=== PATIENT | female | born 1945 | race Caucasian/White ===

== ENCOUNTER 2017-02-23 09:48 | Emergency (ER) | payer OTHER ==
[2017-02-23 09:58] VITALS: BMI 18.3
--- NOTE | 2017-02-23 10:12 | PDOC ---
History of Present Illness - General Chief Complaint: Pain, Acute Stated Complaint: BACK PAIN (KIDNEY) Time Seen by Provider: 02/23/17 10:12 - History of Present Illness Initial Comments: 02/23/17 11:10 72 year old female with PMH of dementia, HTN, HLD, and Diabetes presenting with right mid back pain since 3 PM on the day before presentation. Denies any trauma to the area. The pain is described as a sharp pain that is minimal at baseline but can suddenly shoot to severe pain. No clear exacerbating or relieving factors but potentially worse with certain movements. SHe also admits to some mild nausea but no vomiting, diarrhea, or loss of appetite. Denies chest pain, fevers, chills, lightheadedness, palpitations, or other sick symptoms. Has no history of previous abdominal surgeries or kidney stones. Her PCP is Dr. Weiss. Past History - Past Medical History Allergies/Adverse Reactions: Allergies Allergy/AdvReac Type Severity Reaction Status Date / Time No Known Allergies Allergy Verified 02/23/17 09:57 Home Medications: Ambulatory Orders Unobtainable [Unobtainable] 02/23/17 Cardiac Disorders: Yes Dementia: Yes Diabetes: Yes - Psycho/Social/Smoking Cessation Hx Anxiety: No Suicidal Ideation: No Smoking History: Never smoked Substance Use Type: None Review of Systems - Review of Systems Constitutional: No: Chills, Diaphoresis, Fever HEENTM: No: Blurred Vision, Tearing Respiratory: No: Cough, Orthopnea, Shortness of Breath, SOB with Exertion Cardiac (ROS): No: Chest Pain, Irregular Heart Rate, Lightheadedness, Palpitations, Syncope ABD/GI: Yes: Nausea. No: Constipated, Diarrhea, Poor Appetite, Poor Fluid Intake, Vomiting : Yes: Flank Pain. No: Dysuria, Hematuria Musculoskeletal: Yes: Back Pain. No: Joint Pain, Muscle Weakness Integumentary: No: Erythema, Lesions Neurological: No: Headache, Dizziness Psychiatric: Yes: Anxiety. No: Change in Appetite *Physical Exam - Vital Signs Last Vital Signs Temp Pulse Resp BP Pulse Ox 72 20 140/56 98 02/23/17 09:54 02/23/17 09:54 02/23/17 09:54 02/23/17 09:54 - Physical Exam General Appearance: Yes: Nourished, Apparent Distress, Moderate Distress HEENT: positive: EOMI, NIC, Normal Voice Respiratory/Chest: positive: Lungs Clear, Normal Breath Sounds. negative: Chest Tender, Respiratory Distress, Accessory Muscle Use Cardiovascular: positive: Regular Rhythm, Regular Rate, S1, S2, JVD, Murmur, Systolic Murmur. negative: Edema Gastrointestinal/Abdominal: positive: Normal Bowel Sounds, Flat, Soft. negative : Tender, Organomegaly, Pulsatile Mass Musculoskeletal: positive: Other (No clear CVA tenderness but pain in the right mid back with movement at the area of the right kidney.). negative: CVA Tenderness (R), CVA Tenderness (L) Integumentary: positive: Dry, Warm Neurologic: positive: Alert, Normal Mood/Affect ED Treatment Course - LABORATORY CBC & Chemistry Diagram: 02/23/17 10:53 02/23/17 10:53 Medical Decision Making - Medical Decision Making 72 year old female with PMH of Insulin dependent diabetes, HLD, HTN, and dementia presenting with mid right back pain for the past day that started suddenly. Important etiologies to rule out include AAA, or infected intra abdominal infection. However, this colicky pain is most likely associated with either renal stone or gallstone. 02/23/17 14:08 CT returned with non obstructive gallstones and 1 cm renal cyst. No vascular pathology or acute infection. UA returned positive for infection so will treat her with 1gm ceftriaxone for presummed pyelonephritis and send her home with PCP (Dr. Panchal/ Dr. Weiss) follow up on Saturday. 02/23/17 14:10 *DC/Admit/Observation/Transfer Diagnosis at time of Disposition: Pyelonephritis, acute - Discharge Dispostion Disposition: HOME Admit: No - Referrals Referrals: Milan Panchal MD [Primary Care Provider] - - Patient Instructions Additional Instructions: You were seen for an infection in your kidneys. We gave you antibiotics. You should get better in a few days to week. You can take Tylenol and low dose of Motrin for your pain. Please return to the ED if you do not get better within a week or if the pain gets worse. Please see your primary care physician on Saturday. - Attestations Physician Attestion: I, Dr. Josie De La Torre, attest that this document has been prepared under my direction and personally reviewed by me in its entirety. I further attest, that it accurately reflects all work, treatment, procedures and medical decision -making performed by me. 02/23/17 14:24 02/23/17 14:25 02/23/17 14:27
[2017-02-23 11:05] LABS: BASOPHIL 0.7 % (0-2.0); EOSINOPHIL 0.6 % (0-4.5); MCHC 32.6 g/dl (32.0-36.0); MEAN CELL VOLUME 88.8 fl (80-96); MEAN PLT VOLUME 9.5 fl (7.5-11.1); NEUTROPHILS 76.3 % (42.8-82.8); PLATELET COUNT 166 K/MM3 (134-434); RDW 15.1 % (11.6-15.6); WHITE BLOOD COUNT 8.1 K/mm3 (4.0-10.0)
[2017-02-23] MEDS ORDERED: morphine CARPU-JECT 2 MG/1 ML DISP.SYRIN IVPUSH ONE (11:05)
[2017-02-23 11:09] LABS: URINE APPEARANCE CLOUDY; URINE BILIRUBIN NEGATIVE (NEGATIVE); URINE COLOR YELLOW; URINE GLUCOSE (UA) 3+ (NEGATIVE); URINE KETONE TRACE (NEGATIVE); URINE NITRITE POSITIVE (NEGATIVE); URINE UROBILINOGEN NEGATIVE mg/dL (0.2-1.0)
[2017-02-23] MEDS ORDERED: morphine CARPU-JECT 2 MG/1 ML DISP.SYRIN ONE (11:12)
[2017-02-23 11:15] LABS: URINE BLOOD 1+ (NEGATIVE); URINE LEUK ESTERASE 2+ (NEGATIVE); URINE PROTEIN 2+ (NEGATIVE)
[2017-02-23 11:16] LABS: URINE BACTERIA MANY /hpf (NONE SEEN); URINE MUCUS RARE; URINE RBC 5 /hpf (0-3); URINE WBC 122 /hpf (3-5)
[2017-02-23 11:27] LABS: ALBUMIN 3.4 g/dl (3.4-5.0); ANION GAP 10 (8-16); BILIRUBIN,TOTAL 0.3 mg/dL (0.2-1.0); CALCIUM 9.2 mg/dL (8.5-10.1); CO2 31 mmol/L (21-32); CREATININE 1.1 mg/dL (0.55-1.02); SGOT/AST 13 U/L (15-37); SGPT/ALT 14 U/L (12-78); TOT PROT 8.2 g/dl (6.4-8.2)
[2017-02-23 11:28] LABS: ALK PHOS 114 U/L (45-117)
[2017-02-23 11:29] LABS: GLUCOSE,RANDOM 433 mg/dL (74-106)
--- NOTE | 2017-02-23 11:33 | PDOC ---
Attending Attestation - Resident Resident Name: Josie De La Torre - HPI HPI: 02/23/17 11:24 Pt presents to the ED complaining of a two day history of atraumatic back R mid back pain that is worse with walking and twisting movements of the torso. Denies trauma, fever, nausea, vomiting or abdominal pain. - Physicial Exam PE: 02/23/17 11:33 + paraspinal mid back tenderness. - Medical Decision Making 02/23/17 11:34 Pt presents to the ED complaining of atraumatic R mid back pain. Able to ambulate. No neurologic complaints. Differential includes nephrolithiasis, AAA , pyelonephritis, biliary disease, less likely pancreatitis. Will check labs and non contrast CT, will give pain control and reassess.
[2017-02-23] MEDS ORDERED: SODIUM CHLORIDE 0.9% 1000 ML INFUS.BAG IV ONE (13:22)
[2017-02-23 13:23] VITALS: BP 122/60; PULSE 62; TEMP 97.8
[2017-02-23] MEDS ORDERED: CEFTRIAXONE 50 ML ONE (13:58)
--- NOTE | 2017-02-24 13:37 | EKG ---
Test Reason : Blood Pressure : / mmHG Vent. Rate : 064 BPM Atrial Rate : 064 BPM P-R Int : 172 ms QRS Dur : 102 ms QT Int : 474 ms P-R-T Axes : 080 -52 090 degrees QTc Int : 489 ms NORMAL SINUS RHYTHM LEFT ANTERIOR FASCICULAR BLOCK MINIMAL VOLTAGE CRITERIA FOR LVH, MAY BE NORMAL VARIANT NONSPECIFIC ST AND T WAVE ABNORMALITY ABNORMAL ECG NO PREVIOUS ECGS AVAILABLE Confirmed by NAHOMI KING, DIONI ([id number]) on 02/24/2017 1:37:18 PM Referred By: Confirmed By:DIONI COMER MD
== END 2017-02-23 15:42 | disposition home or self-care (01) ==
LOC: JER 09:48
PROC: 3E033NZ Introduction of Analgesics, Hypnotics, Sedatives into Peripheral Vein, Percutaneous Approach (ICD-10-PCS; principal; 2017-02-23)
PROC: 3E03329 Introduction of Other Anti-infective into Peripheral Vein, Percutaneous Approach (ICD-10-PCS; 2017-02-23)
DX: N10 Acute pyelonephritis (principal); I10 Essential (primary) hypertension; E78.00 Pure hypercholesterolemia, unspecified; E11.9 Type 2 diabetes mellitus without complications; Z79.84 Long term (current) use of oral hypoglycemic drugs; F03.90 Unspecified dementia, unspecified severity, without behavioral disturbance, psychotic disturbance, mood disturbance, and anxiety
CPT/HCPCS: 36415; 74176-TC; 80053; 81003; 81015; 85025; 85610; 93005; 93010; 96374; 96375; 99284-25